=== PATIENT | female | born 1980 | race African-American/Black ===

== ENCOUNTER 2017-02-16 05:08 | Emergency (ER) | payer MEDICARE, MEDICAID ==
[2017-02-16] MEDS ORDERED: Famotidine 20 MG TAB ONE (05:56)
== END 2017-02-16 06:06 | disposition left against medical advice (07) ==
LOC: ERS 05:08
DX: R10.9 Unspecified abdominal pain (principal); I10 Essential (primary) hypertension; F41.9 Anxiety disorder, unspecified; F31.9 Bipolar disorder, unspecified; F17.210 Nicotine dependence, cigarettes, uncomplicated; Z79.899 Other long term (current) drug therapy
CPT/HCPCS: 99284

== ENCOUNTER 2017-03-07 13:33 | Emergency (ER) | payer MEDICARE, MEDICAID | END 2017-03-07 14:30 | disposition home or self-care (01) | LOC: ERS 13:33 | DX: I16.0 Hypertensive urgency (principal); F41.9 Anxiety disorder, unspecified; F31.9 Bipolar disorder, unspecified; Z71.6 Tobacco abuse counseling; F17.210 Nicotine dependence, cigarettes, uncomplicated | CPT/HCPCS: 99406 ==

== ENCOUNTER 2018-11-21 02:51 | Inpatient (IN) | payer MEDICARE, MEDICAID ==
[2018-11-21 03:33] LABS: #Basophils 0.1 thou/uL (0.0-0.2); #Eosinphils 0.3 thou/uL (0.0-0.7); #Lymphocytes 2.6 thou/uL (1.20-3.40); #Monocytes 0.5 thou/uL (0.11-0.59); #Neutrophils 3.6 thou/uL (1.40-6.50); %Basophils 0.8 % (0.0-1.0); %Eosinophils 3.7 % (0.0-10.0); %Lymphocytes 37.3 % (21.0-51.0); %Monocytes 6.8 % (0.0-10.0); %Neutrophils 51.5 % (42.0-75.0); Mean Corpuscular HGB CONC 33.4 g/dL (32.0-36.0); Mean Corpuscular Hemoglobin 28.8 pg (27.0-31.0); Mean Corpuscular Volume 86.3 fL (78.0-98.0); Platelet Count 215 thou/uL (130-400); RBC Distribution Width 13.9 % (11.5-14.5); Red Blood Cell (RBC) Count 4.18 mill/uL (4.20-5.40); White Blood Cell (WBC) Count 7.1 thou/uL (4.8-10.8)
[2018-11-21 03:37] LABS: BHCG - Serum Negative (NEGATIVE); Pregs Control Background? CLEAR/WHITE (CLR/WHITE); Pregs Control Bar Appear? YES (CONTROL BAR)
[2018-11-21 03:49] LABS: Acetaminophen Less than 6.0 mcg/mL (10.0-30.0); Alcohol Less than 10 mg/dL (Less than 10); Salicylate Less than 8.0 mg/dL (15.0-30.0)
[2018-11-21 03:50] LABS: ALT (SGPT) 14 U/L (8-55); AST (SGOT) 17 U/L (5-34); Albumin 3.8 g/dL (3.5-5.0); Alkaline Phosphatase 79 U/L (40-150); Anion Gap 11 mmol/L (10-20); BUN (Urea Nitrogen) 10 mg/dL (7.0-18.7); Bilirubin, Total Less than 0.2 mg/dL (0.2-1.2); Calc. Creatinine Clearance 0 mL/min (70-130); Carbon Dioxide 25 mmol/L (22-29); Chloride 108 mmol/L (98-107); Estimated GFR-MDRD Greater than 90; Globulin 2.9 g/dL (2.4-3.5); Glucose 88 mg/dL (70-105); Potassium 3.8 mmol/L (3.5-5.1); Protein, Total 6.7 g/dL (6.0-8.3); Sodium 140 mmol/L (136-145)
[2018-11-21 04:48] LABS: Bilirubin Negative (Negative); Blood, Urine Negative (Negative); Clarity Clear (Clear); Glucose, Urine (Dipstick) Normal (Negative); Leukocyte Negative Leu/uL (Negative); Nitrite Negative (Negative); Protein, Urine (Dipstick) Negative (Neg-Trace); Urobilinogen Normal mg/dL (Less than 2)
[2018-11-21 05:05] LABS: Amphetamine Not Detected (NotDetected); Barbiturates Screen Not Detected (NotDetected); Benzodiazepine Screen Not Detected (NotDetected); Cocaine Metabolite Screen Not Detected (NotDetected); Medtox Control Line Valid? VALID (VALID); Medtox Reader # READER 4; Methadone Not Detected (NotDetected); Methamphetamine Not Detected (NotDetected); Opiate Screen Not Detected (NotDetected); Oxycodone Screen Not Detected (NotDetected); Phencyclidine (PCP) Not Detected (NotDetected); THC/Cannabinoid Screen Not Detected (NotDetected); Tricyclic Screen Not Detected (NotDetected)
[2018-11-21 07:03] LABS: Acetaminophen Less than 6.0 mcg/mL (10.0-30.0); Alcohol Less than 10 mg/dL (Less than 10); Salicylate Less than 8.0 mg/dL (15.0-30.0)
[2018-11-21] MEDS ORDERED: Acetaminophen 325 MG TAB PO PRN (14:07)
[2018-11-21] MEDS ORDERED: Ondansetron ODT 4 MG TAB SL PRN (14:07)
[2018-11-21] MEDS ORDERED: Ondansetron PF 4 MG/2 ML Vial IVP PRN ×2 (14:07→14:24)
[2018-11-21 14:42] VITALS: BMI 31.3
[2018-11-21] MEDS: Sodium Chloride 0.9% 1,000 ML IV SCH (15:19)
[2018-11-21] MEDS ORDERED: Docusate 100 MG CAP PO PRN (17:37)
[2018-11-21] MEDS: Polyethylene Glycol 3350 17 GM Packet PO PRN (20:14)
[2018-11-21] MEDS: Famotidine 20 MG TAB PO SCH (20:14)
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
[2018-11-22 05:04] LABS: #Basophils 0.1 thou/uL (0.0-0.2); #Eosinphils 0.2 thou/uL (0.0-0.7); #Lymphocytes 2.1 thou/uL (1.20-3.40); #Monocytes 0.3 thou/uL (0.11-0.59); %Basophils 1.5 % (0.0-1.0); %Eosinophils 4.7 % (0.0-10.0); %Lymphocytes 45.3 % (21.0-51.0); %Neutrophils 42.5 % (42.0-75.0); Hemoglobin 11.9 g/dL (12.0-16.0); Mean Corpuscular HGB CONC 31.3 g/dL (32.0-36.0); Mean Corpuscular Hemoglobin 27.6 pg (27.0-31.0); Mean Platelet Volume 9.2 fL (7.4-10.4); Platelet Count 195 thou/uL (130-400); RBC Distribution Width 13.8 % (11.5-14.5); White Blood Cell (WBC) Count 4.6 thou/uL (4.8-10.8)
[2018-11-22 05:25] LABS: Anion Gap 9 mmol/L (10-20); BUN (Urea Nitrogen) 9 mg/dL (7.0-18.7); Calc. Creatinine Clearance 140 mL/min (70-130); Calcium 8.9 mg/dL (7.8-10.44); Carbon Dioxide 26 mmol/L (22-29); Chloride 107 mmol/L (98-107); Estimated GFR-MDRD Greater than 90; Glucose 88 mg/dL (70-105); Sodium 138 mmol/L (136-145)
[2018-11-22] MEDS ORDERED: Docusate 100 MG CAP PO PRN (08:09)
[2018-11-22] MEDS ORDERED: Non-Formulary Item 1 EACH (Prenatal 21/Iron Fu/Folic Acid [Prenatal Complete Caplet] 1 TA PO SCH (09:00)
[2018-11-22] MEDS: Enoxaparin Sodium 40 MG/0.4 ML SYRINGE SC SCH (09:10)
[2018-11-22] MEDS: Prenatal Vitamin 1 TAB PO SCH (09:10)
[2018-11-22] MEDS: Famotidine 20 MG TAB PO SCH ×2 (09:10→20:56)
[2018-11-22] MEDS: Sodium Chloride 0.9% 1,000 ML IV SCH (09:11)
--- NOTE | 2018-11-22 11:15 | DIS ---
DATE OF ADMISSION: 11/21/2018 DATE OF DISCHARGE: 11/22/2018 PRIMARY CARE PHYSICIAN: [facility] Call admission. DISCHARGE DISPOSITION: Psych facility versus home after [facility] evaluation. PRIMARY DISCHARGE DIAGNOSIS: Intentional drug overdose (with propranolol). SECONDARY DISCHARGE DIAGNOSES: Severe depression, obesity with BMI 31. PRIMARY PROCEDURE/OPERATION: None. RADIOLOGICAL INVESTIGATION: None. SIGNIFICANT LABORATORY DATA: WBC 4.6, hemoglobin 11.9, and platelet 195. Sodium 138, potassium 4.0, BUN 9, creatinine 0.82, and calcium 8.9. LFT normal. Urinalysis normal. Urine drug screen negative. Serum drug screen negative. DISCHARGE MEDICATIONS: 1. Colace 100 mg p.o. daily p.r.n. 2. Multivitamin 1 tablet daily. 3. Ambien 5 mg p.o. at bedtime. CONTRAINDICATION: None. CODE STATUS: Full code. INPATIENT FUGITIVE DETECTIVE: None other than [facility]. TEST RESULT PENDING ON DISCHARGE: None. ALLERGIES: DIVALPROEX SODIUM, HALOPERIDOL, LITHIUM, AND LURASIDONE. DISCHARGE PLAN: Posthospital, the patient will be discharged to psych facility versus home after [facility] evaluation. HOSPITAL COURSE: A 38-year-old female, who had intentional drug overdose with few pills of propranolol. In the emergency room, the patient was hemodynamically stable. She was having normal EKG. She was given IV fluids. She was having severe depression. She was observed on telemetry floor. She did not have any arrhythmia or bradycardia while on monitoring. She did not require any specific treatment. The patient was still feeling depressed. She is now medically stable. We are consulting [facility] and [facility] will evaluate this patient and after that, we will make decision whether she safely discharge to home versus psych facility. PHYSICAL EXAMINATION: GENERAL: I have seen and examined the patient at bedside today. VITAL SIGNS: Currently temperature 98.8, pulse 65, respiratory rate 17, saturation 100% on room air, and blood pressure 131/80. Weight 206 pounds. GENERAL: The patient is currently alert and awake, no obvious acute distress. HEENT: Head; normocephalic and atraumatic. LUNGS: Clear to auscultation without any rhonchi or rales. CARDIAC: S1 and S2 regular without any murmur. No gallop. ABDOMEN: Soft. Bowel sounds present. Nontender. Nondistended. EXTREMITIES: No edema. NEUROLOGIC: Nonfocal examination. The patient will be discharged later on today. Job ID: [id number]
[2018-11-22] MEDS: Zolpidem Tartrate 5 MG TAB PO SCH (20:56)
[2018-11-23] MEDS ORDERED: Bisacodyl 10 MG SUPP PR PRN (08:08)
[2018-11-23] MEDS ORDERED: Diabetic Tussin 200 MG/10 ML UDCUP PO PRN (08:08)
[2018-11-23] MEDS ORDERED: hydrALAZINE 20 MG/ML VIAL SLOW IVP PRN (08:08)
[2018-11-23] MEDS ORDERED: Loratadine 10 MG TAB PO PRN (08:08)
[2018-11-23] MEDS ORDERED: Loperamide HCl 2 MG CAP PO PRN (08:08)
[2018-11-23] MEDS ORDERED: Cepastat Lozenges 1 LOZ PO PRN (08:08)
[2018-11-23] MEDS ORDERED: Artificial Tears 18 DROP/0.9 ML EA EYE PRN (08:08)
[2018-11-23] MEDS ORDERED: Senokot S 8.6-50 MG TAB PO PRN (08:08)
[2018-11-23] MEDS ORDERED: Ondansetron ODT 4 MG TAB PO PRN (08:08)
[2018-11-23] MEDS ORDERED: Sodium Chloride 0.65% Nasal 44 ML BOT EA NARE PRN (08:08)
[2018-11-23] MEDS: Famotidine 20 MG TAB PO SCH ×2 (08:59→20:11)
[2018-11-23] MEDS: Prenatal Vitamin 1 TAB PO SCH (08:59)
[2018-11-23] MEDS: Enoxaparin Sodium 40 MG/0.4 ML SYRINGE SC SCH (08:59)
[2018-11-23] MEDS: Acetaminophen 325 MG TAB PO PRN ×2 (09:05→20:21)
--- NOTE | 2018-11-23 11:23 | PDOC.HOSPP ---
- Subjective Encounter Date: 11/23/18 Encounter Time: 07:15 Subjective: Patient seen and examined. No new complaints. No overnight events - Objective Vital Signs & Weight: Vital Signs (12 hours) Temp Pulse Resp BP BP Pulse Ox 11/23/18 08:16 98.1 F 77 18 111/96 H 99 11/23/18 04:00 98.1 F 60 18 132/61 98 Weight Admit Weight 206 lb Weight 206 lb Result Diagrams: 11/22/18 04:40 11/22/18 04:40 ROS - Review of Systems Constitutional: denies: fever, chills, sweats, weakness, malaise, other Eyes: denies: pain, vision change, conjunctivae inflammation, eyelid inflammation, redness, other ENT: denies: ear pain, ear discharge, nose pain, nose discharge, nose congestion , mouth pain, mouth swelling, throat pain, throat swelling, other Respiratory: denies: cough, dry, shortness of breath, hemoptysis, SOB with excertion, pleuritic pain, sputum, wheezing, other Cardiovascular: denies: chest pain, palpitations, orthopnea, paroxysmal noc. dyspnea, edema, light headedness, other Gastrointestinal: denies: nausea, vomitting, abdominal pain, diarrhea, constipation, melena, hematochezia, other Genitourinary: denies: dysuria, frequency, incontinence, hematuria, retention, other Musculoskeletal: denies: neck pain, shoulder pain, arm pain, back pain, hand pain, leg pain, foot pain, other Skin: denies: rash, lesions, derek, bruising, other - Medication Medications: Active Medications Generic Name Dose Route Start Last Admin Trade Name Freq PRN Reason Stop Dose Admin Acetaminophen 650 mg 11/21/18 14:24 11/23/18 09:05 Tylenol PO 650 mg Q4H PRN Administration Headache/Fever/Mild Pain (1-3) Enoxaparin Sodium 40 mg 11/22/18 09:00 11/23/18 08:59 Lovenox SC 40 mg 0900 OSIRIS Administration Famotidine 20 mg 11/21/18 21:00 11/23/18 08:59 Pepcid PO 20 mg BID OSIRIS Administration Polyethylene Glycol 17 gm 11/21/18 17:37 11/21/18 20:14 Miralax PO 17 gm DAILYPRN PRN Administration Constipation Multivit/Folic Acid/Iron 1 tab 11/22/18 09:00 11/23/18 08:59 Vitamin PO 1 tab DAILY OSIRIS Administration Zolpidem Tartrate 5 mg 11/22/18 21:00 11/22/18 20:56 Ambien PO 5 mg HS OSIRIS Administration - Exam NAD, awake alert Eye: PERRL, anicteric sclera ENT: normocephalic atraumatic, no oropharyngeal lesions Neck: supple, symmetric, no JVD Heart: RRR, no murmur, no gallops, no rubs Respiratory: CTAB, no wheezes, no rales, no ronchi Gastrointestinal: soft, non-tender, non-distended, normal bowel sounds Extremities: no cyanosis, no clubbing, no edema Skin: normal turgor, no lesions, no rashes Neurological: CN's grossly intact, normal sensation to touch, no focal deficits Musculoskeletal: normal tone, normal strength, no muscle wasting Psychiatric: normal affect, normal behavior, A&O x 3 Hosp A/P (1) Intentional drug overdose Code(s): T50.902A - POISONING BY UNSP DRUG/MEDS/BIOL SUBST, SELF-HARM, INIT Status: Acute (2) Obesity (BMI 30.0-34.9) Code(s): E66.9 - OBESITY, UNSPECIFIED Status: Chronic (3) Severe depression Code(s): F32.2 - MAJOR DEPRESSV DISORD, SINGLE EPSD, SEV W/O PSYCH FEATURES Status: Chronic - Plan old records reviewed/req medication reviewed as above symptomatic treatment await psych bed availability medically stable
[2018-11-23] MEDS: Zolpidem Tartrate 5 MG TAB PO SCH (20:11)
[2018-11-23] MEDS: Polyethylene Glycol 3350 17 GM Packet PO PRN (20:12)
[2018-11-24] MEDS ORDERED: Simethicone Chewable 80 MG TAB PO SCH (00:30)
[2018-11-24] MEDS ORDERED: Senokot S 8.6-50 MG TAB PO SCH (01:15)
[2018-11-24 01:56] LABS: ALT (SGPT) 24 U/L (8-55); AST (SGOT) 14 U/L (5-34); Albumin 3.8 g/dL (3.5-5.0); Alkaline Phosphatase 73 U/L (40-150); Bilirubin, Direct 0.1 mg/dL (0.1-0.3); Bilirubin, Total Less than 0.2 mg/dL (0.2-1.2); Lipase 122 U/L (8-78); Protein, Total 6.6 g/dL (6.0-8.3)
--- NOTE | 2018-11-24 02:27 | PDOC.EVN ---
Event Note - Event Note Event Note: Patient complaining of abdominal pain that woke her from sleep. Diffuse, has trouble describing the nature. Abdominal exam benign, belly soft, positive BS. Abd X ray reviewed by myself and Dr. Mcfarlane reveals large amount of stool and gas. Suspect constipation. Patient given simethicone and Senokot. LFTs and lipase ordered, lipase mildly elevated, patient has no N/V. Upon repeat call, patient sleeping and resting comfortably with no complaints.
[2018-11-24] MEDS: Acetaminophen 325 MG TAB PO PRN (05:01)
[2018-11-24] MEDS: Famotidine 20 MG TAB PO SCH ×2 (08:43→20:27)
[2018-11-24] MEDS: Enoxaparin Sodium 40 MG/0.4 ML SYRINGE SC SCH (08:44)
--- NOTE | 2018-11-24 09:18 | RAD ---
PORTABLE SUPINE ABDOMEN: HISTORY: Abdominal pain. FINDINGS: The bowel gas pattern is unremarkable Scattered stool and gas seen throughout the colon. Small bow el gas pattern is unremarkable. No soft tissue mass or abnormal calcification identified. IMPRESSION: Unremarkable bowel gas pattern. Prominent stool throughout the colon is noted. POS: ETHANH
[2018-11-24] MEDS: Prenatal Vitamin 1 TAB PO SCH (09:38)
[2018-11-24] MEDS ORDERED: Calcium Carbonate 500 MG ChewTAB PO PRN (11:44)
--- NOTE | 2018-11-24 12:37 | PDOC.HOSPP ---
- Subjective Encounter Date: 11/24/18 Encounter Time: 09:25 Subjective: no suicidal ideation now, still feels depressed wants tums prn with mild epigastric dyscomfort, its resolved now - Objective Vital Signs & Weight: Vital Signs (12 hours) Temp Pulse Resp BP BP Pulse Ox 11/24/18 11:58 98.4 F 91 18 94/59 L 99 11/24/18 08:39 97.9 F 86 16 118/64 96 11/24/18 08:00 97.9 F 86 96 11/24/18 04:00 98.7 F 65 20 134/89 97 Weight Admit Weight 206 lb Weight 206 lb I&O: 11/23/18 11/24/18 11/25/18 06:59 06:59 06:59 Intake Total 480 720 Balance 480 720 Result Diagrams: 11/22/18 04:40 11/22/18 04:40 ROS - Medication Medications: Active Medications Generic Name Dose Route Start Last Admin Trade Name Freq PRN Reason Stop Dose Admin Acetaminophen 650 mg 11/21/18 14:24 11/24/18 05:01 Tylenol PO 650 mg Q4H PRN Administration Headache/Fever/Mild Pain (1-3) Calcium Carbonate 1,000 mg 11/24/18 11:44 11/24/18 11:53 Tums PO 1,000 mg Q4H PRN Administration Heartburn or Indigestion Enoxaparin Sodium 40 mg 11/22/18 09:00 11/24/18 08:44 Lovenox SC 40 mg 0900 OSIRIS Administration Famotidine 20 mg 11/21/18 21:00 11/24/18 08:43 Pepcid PO 20 mg BID OSIRIS Administration Polyethylene Glycol 17 gm 11/21/18 17:37 11/23/18 20:12 Miralax PO 17 gm DAILYPRN PRN Administration Constipation Multivit/Folic Acid/Iron 1 tab 11/22/18 09:00 11/24/18 09:38 Vitamin PO 1 tab DAILY OSIRIS Administration Zolpidem Tartrate 5 mg 11/22/18 21:00 11/23/18 20:11 Ambien PO 5 mg HS OSIRIS Administration - Exam NAD, awake alert Eye: PERRL, anicteric sclera ENT: no oropharyngeal lesions, moist mucosa Neck: supple, no JVD Heart: RRR, no murmur Respiratory: no wheezes, no rales Gastrointestinal: soft, non-tender, normal bowel sounds Extremities: no cyanosis, no clubbing Neurological: CN's grossly intact, no focal deficits Psychiatric: A&O x 3 Hosp A/P (1) Intentional drug overdose Code(s): T50.902A - POISONING BY UNSP DRUG/MEDS/BIOL SUBST, SELF-HARM, INIT Status: Acute (2) Obesity (BMI 30.0-34.9) Code(s): E66.9 - OBESITY, UNSPECIFIED Status: Chronic (3) Severe depression Code(s): F32.2 - MAJOR DEPRESSV DISORD, SINGLE EPSD, SEV W/O PSYCH FEATURES Status: Chronic - Plan overdose on propranolol, hemostable awaiting inpt psychiatric facility placement may dc anytime if above is ready
[2018-11-24] MEDS: Zolpidem Tartrate 5 MG TAB PO SCH (20:27)
[2018-11-24] MEDS: Polyethylene Glycol 3350 17 GM Packet PO PRN (20:31)
[2018-11-25] MEDS: Enoxaparin Sodium 40 MG/0.4 ML SYRINGE SC SCH (08:17)
[2018-11-25] MEDS: Prenatal Vitamin 1 TAB PO SCH (08:17)
[2018-11-25] MEDS: Famotidine 20 MG TAB PO SCH (08:17)
[2018-11-25] MEDS: Acetaminophen 325 MG TAB PO PRN (10:05)
[2018-11-25] MEDS ORDERED: ALPRAZolam 0.25 MG TAB PO PRN (10:41)
--- NOTE | 2018-11-25 12:16 | PDOC.HOSPP ---
- Subjective Encounter Date: 11/25/18 Encounter Time: 08:00 Subjective: wants her home meds to be back on, she knows she is on celexa and ativan but is not aware of other meds MR is here to eval pt, they will try to obtain her current home meds to restart them - Objective Vital Signs & Weight: Vital Signs (12 hours) Temp Pulse Resp BP Pulse Ox 11/25/18 11:42 98.2 F 90 18 111/58 L 98 11/25/18 08:16 97 11/25/18 08:00 98.4 F 80 18 111/70 97 11/25/18 04:07 98.7 F 69 16 103/53 L 96 Weight Admit Weight 206 lb Weight 206 lb I&O: 11/24/18 11/25/18 11/26/18 06:59 06:59 06:59 Intake Total 480 2460 Balance 480 2460 Result Diagrams: 11/22/18 04:40 11/22/18 04:40 Additional Labs: Accuchecks 11/25/18 11:50 POC Glucose 88 ROS - Medication Medications: Active Medications Generic Name Dose Route Start Last Admin Trade Name Freq PRN Reason Stop Dose Admin Acetaminophen 650 mg 11/21/18 14:24 11/25/18 10:05 Tylenol PO 650 mg Q4H PRN Administration Headache/Fever/Mild Pain (1-3) Alprazolam 0.25 mg 11/25/18 10:41 11/25/18 10:58 Xanax PO 0.25 mg QIDPRN PRN Administration Anxiety Calcium Carbonate 1,000 mg 11/24/18 11:44 11/24/18 11:53 Tums PO 1,000 mg Q4H PRN Administration Heartburn or Indigestion Enoxaparin Sodium 40 mg 11/22/18 09:00 11/25/18 08:17 Lovenox SC 40 mg 0900 OSIRIS Administration Famotidine 20 mg 11/21/18 21:00 11/25/18 08:17 Pepcid PO 20 mg BID OSIRIS Administration Polyethylene Glycol 17 gm 11/21/18 17:37 11/24/18 20:31 Miralax PO 17 gm DAILYPRN PRN Administration Constipation Multivit/Folic Acid/Iron 1 tab 11/22/18 09:00 11/25/18 08:17 Vitamin PO 1 tab DAILY OSIRIS Administration Senna/Docusate Sodium 2 tab 11/23/18 08:08 11/24/18 17:35 Senokot S PO 2 tab BID PRN Administration Constipation Sodium Chloride 10 ml 11/21/18 14:07 11/25/18 08:18 Flush - Normal Saline IVF 10 ml PRN PRN Administration Saline Flush Zolpidem Tartrate 5 mg 11/22/18 21:00 11/24/18 20:27 Ambien PO 5 mg HS OSIRIS Administration - Exam NAD, awake alert Eye: PERRL, anicteric sclera ENT: no oropharyngeal lesions, moist mucosa Neck: supple, no JVD Heart: RRR, no murmur Respiratory: no wheezes, no rales Gastrointestinal: soft, non-tender, non-distended, normal bowel sounds Extremities: no cyanosis, no edema Neurological: CN's grossly intact, no focal deficits Psychiatric: A&O x 3 Hosp A/P (1) Intentional drug overdose Code(s): T50.902A - POISONING BY UNSP DRUG/MEDS/BIOL SUBST, SELF-HARM, INIT Status: Acute (2) Obesity (BMI 30.0-34.9) Code(s): E66.9 - OBESITY, UNSPECIFIED Status: Chronic (3) Severe depression Code(s): F32.2 - MAJOR DEPRESSV DISORD, SINGLE EPSD, SEV W/O PSYCH FEATURES Status: Chronic - Plan overdose on propranolol, medically stable for discharge. awaiting inpt psychiatric facility placement, likely in am to [facility] unit may dc anytime if above is ready start celexa and xanax for now, [facility]/staff to update home meds She was going to [facility] on [address] before, but last meds were filled in [place] area pharmacy?
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
[2018-11-25 16:48] VITALS: BP 140/60; TEMP 98.5
[2018-11-26] MEDS ORDERED: Citalopram 20 MG TAB PO SCH (09:00)
== END 2018-11-25 17:37 | DRG 918 ==
LOC: ERS 02:51 → ERHOLD 08:29 → 2NO 14:17 → T4-B 11-23 13:43
PROVIDERS: ADMIT Internal Medicine; ATTEND Internal Medicine
DX: T44.7X2A Poisoning by beta-adrenoreceptor antagonists, intentional self-harm, initial encounter (principal); F33.2 Major depressive disorder, recurrent severe without psychotic features; F43.10 Post-traumatic stress disorder, unspecified; F17.210 Nicotine dependence, cigarettes, uncomplicated; I10 Essential (primary) hypertension; E66.9 Obesity, unspecified; Z68.31 Body mass index [BMI] 31.0-31.9, adult; Z88.8 Allergy status to other drugs, medicaments and biological substances; Z79.899 Other long term (current) drug therapy; Y92.019 Unspecified place in single-family (private) house as the place of occurrence of the external cause; Z91.410 Personal history of adult physical and sexual abuse
CPT/HCPCS: 36415; 36416; 74018; 80048; 80053; 80076; 80306; 80307; 81003; 83690; 84703; 85025; 93005; 96360; J1650

== ENCOUNTER 2024-01-02 01:31 | Emergency (ER) | payer MEDICAID, MEDICARE ==
[2024-01-02 04:37] LABS: #Basophils 0.04 10x3/uL (0.0-0.2); #Eosinphils Less than 0.03 10x3/uL (0.0-0.7); %Basophils 0.6 % (0.0-1.0); %Eosinophils 0.1 % (0.0-10.0); %Lymphocytes 40.4 % (21.0-51.0); %Monocytes 9.4 % (0.0-10.0); %Neutrophils 49.4 % (42.0-75.0); Hematocrit 40.5 % (36.0-47.0); Hemoglobin 12.3 g/dL (12.0-16.0); Mean Corpuscular HGB CONC 30.4 g/dL (32.0-36.0); Mean Corpuscular Hemoglobin 25.2 pg (27.0-31.0); Mean Corpuscular Volume 82.8 fL (78.0-98.0); Mean Platelet Volume 10.8 fL (7.4-10.4); Platelet Count 275 10x3/uL (130-400); RBC Distribution Width 17.4 % (11.5-14.5); Red Blood Cell (RBC) Count 4.89 mill/uL (4.20-5.40)
[2024-01-02 04:58] LABS: BHCG - Serum Negative (NEGATIVE); Pregs Control Background? CLEAR/WHITE (CLR/WHITE); Pregs Control Bar Appear? YES (CONTROL BAR)
[2024-01-02 05:01] LABS: ALT (SGPT) 19 U/L (8-55); AST (SGOT) 46 U/L (5-34); Albumin 4.5 g/dL (3.5-5.0); Alkaline Phosphatase 68 U/L (40-110); Anion Gap 18 mmol/L (10-20); BUN (Urea Nitrogen) 12 mg/dL (7.0-18.7); Bilirubin, Total 0.3 mg/dL (0.2-1.2); Calc. Creatinine Clearance 0 mL/min (70-130); Carbon Dioxide 18 mmol/L (22-29); Chloride 104 mmol/L (98-107); Estimated GFR 73; Globulin 4.7 g/dL (2.4-3.5); Glucose 93 mg/dL (70-105); Potassium 3.6 mmol/L (3.5-5.1); Protein, Total 9.2 g/dL (6.0-8.3); Sodium 136 mmol/L (136-145)
[2024-01-02 05:02] LABS: Acetaminophen Less than 10 mcg/mL (Less than 10); Alcohol Less than 10.0 mg/dL (Less than 10); Salicylate Less than 8.0 mg/dL (Less than 8.0); Troponin I Less than 0.010 ng/mL (< 0.028)
[2024-01-02 05:06] LABS: Bacteria/HPF None Seen HPF (None Seen); Bilirubin Negative (Negative); Blood, Urine 2+ (Negative); CAUTI Indications for Culture Alt mental st,lethar; Clarity Clear (Clear); Glucose, Urine (Dipstick) Normal (Negative); Ketone, Urine Trace mg/dL (Negative); Leukocyte Negative Leu/uL (Negative); Nitrite Negative (Negative); Protein, Urine (Dipstick) 30 mg/dL (Neg-Trace); Specific Gravity, Urine 1.028 (1.002-1.036); Squamous Epithelial 0-3 HPF (0-3); Urobilinogen Normal mg/dL (Less than 2); WBC/HPF 0-3 HPF (0-3)
[2024-01-02 05:07] LABS: Urine Culture Reflex No No
[2024-01-02 05:08] LABS: Amphetamine Detected (NotDetected); Barbiturates Screen Not Detected (NotDetected); Benzodiazepine Screen Not Detected (NotDetected); Cocaine Metabolite Screen Detected (NotDetected); Methadone Not Detected (NotDetected); Methamphetamine Detected (NotDetected); Opiate Screen Not Detected (NotDetected); Oxycodone Screen Not Detected (NotDetected); Phencyclidine (PCP) Not Detected (NotDetected); THC/Cannabinoid Screen Not Detected (NotDetected); Tricyclic Screen Not Detected (NotDetected)
[2024-01-02] MEDS ORDERED: Lorazepam 1 MG TAB ONE (05:10)
[2024-01-02] MEDS ORDERED: OLANZapine 5 MG TAB ONE (15:53)
[2024-01-03] MEDS ORDERED: Ibuprofen 800 MG TAB ONE (00:25)
[2024-01-03] MEDS ORDERED: Zolpidem Tartrate 5 MG TAB ONE (00:25)
== END 2024-01-02 13:34 ==
LOC: EEVIPCON 01:31 → ERS 01:31
DX: R45.851 Suicidal ideations (principal); I10 Essential (primary) hypertension; Z79.899 Other long term (current) drug therapy
CPT/HCPCS: 80053; 80306; 80307; 81001; 84443; 84484; 84703; 85025; 93005